=== PATIENT | female | born 2000 | race Caucasian/White ===

== ENCOUNTER 2018-09-22 20:55 | Emergency (ER) | payer BC | END 2018-09-22 23:40 | disposition home or self-care (01) | LOC: COL.ER 20:55 | DX: R10.11 Right upper quadrant pain (principal) ==

== ENCOUNTER → 2018-09-24 | Outpatient (CLI) | payer BC ==
[~2018-09-24] MED LIST: NORCO 325 MG-51 TAB PO; ZOFRAN ODT4 MG PO
== END ==
LOC: COL.RAD 14:28
DX: R10.11 Right upper quadrant pain (principal)

== ENCOUNTER 2019-02-26 20:57 | Outpatient (CLI) | payer OTHER ==
[~2019-02-26] VITALS: Ht 162.6 cm; Wt 139.1 kg
--- NOTE | 2019-02-26 21:05 | NUR ---
Pt arrived on unit ambulatory escorted by family and with complaints of leaking clear fluid. Pt denies any contractions or vaginal bleeding and reports normal movement. Pt also reports sexual activity in the last 24 hours. EFM and toco monitors started. Vital signs WNL. Amnio-test done and negative. Information reviewed with Dr. Moore. Orders for amnio-sure and no SVE until resulted. Plan of care reviewed with pt and family at the bedside.
[2019-02-26 21:17] VITALS: BP 137/76; PULSE 91; TEMP 98.1
[2019-02-26] MEDS ORDERED: PRENATAL (21:23)
[2019-02-26] MEDS ORDERED: CLARITIN 1010 MG/TAB PO (21:23)
[2019-02-26] MEDS ORDERED: BENADRYL25 M2 PO (21:24)
--- NOTE | 2019-02-26 22:20 | NUR ---
Spoke with Dr. Moore. We reviewed FHR tracing, amnio-sure negative and no contractions at this time. Order for discharge home and no SVE at this time. Discharge instructions reviewed with pt and family at the bedside. Pt verbalized an understanding, agreed with the plan and states no questions or concerns at this time.
== END 2019-02-26 22:30 | disposition home or self-care (01) ==
LOC: LDRO 20:57 → COL.ER 20:57 → LDRO 22:30
DX: O36.8120 Decreased fetal movements, second trimester, not applicable or unspecified (principal); Z3A.24 24 weeks gestation of pregnancy

== ENCOUNTER 2019-05-10 22:36 | Outpatient (CLI) | payer MEDICAID ==
[~2019-05-10] VITALS: Ht 162.6 cm; Wt 145.5 kg
[~2019-05-10 22:36] MED LIST changes: +BENADRYL25 M2 PO; +CLARITIN 1010 MG/TAB PO; +PRENATAL
--- NOTE | 2019-05-10 22:45 | NUR ---
at 34 weeks and 6 days arrives to unit with complaint of back pain and what she thinks might be contractions. Pt has had 1 uncomplicated vaginal delivery. Pt denies LOF or vaginal bleeding. States the back pain comes and goes about every 5-10 minutes and will sometimes radiate to one side of abdomen. Pt oriented to room, clean gown on, bed in low and locked position. US and toco explained and applied. Plan of care reviewed. Pt denies headaches, blurry vision, or RUQ pain. SVE 0/50/-3. Admission assessment started. Vital signs obtained.
[2019-05-10 23:00] VITALS: BP 132/62; PULSE 105; TEMP 98.1
[2019-05-10 23:30] VITALS: BP 134/61; PULSE 107
--- NOTE | 2019-05-10 23:50 | NUR ---
Category 1 FHR tracing obtained. Telephone orders ok to discharge home. Pt agreeable to this plan. Return precautions reviewed. Pt verbalized understanding of discharge plan. Pt seen ambulating off unit with spouse and family member.
== END 2019-05-10 23:50 | disposition home or self-care (01) ==
LOC: LDRO 22:36
DX: O62.9 Abnormality of forces of labor, unspecified (principal); Z3A.34 34 weeks gestation of pregnancy

== ENCOUNTER 2019-05-29 19:50 | Outpatient (CLI) | payer MEDICAID ==
[~2019-05-29] VITALS: Ht 162.6 cm; Wt 148.2 kg
--- NOTE | 2019-05-29 20:05 | NUR ---
at 37 weeks and 4 days arrives to unit with complaint of contractions every 5-10 minutes. Pt states she feels them in her abdomen and wrap around to back. Pt denies LOF or vaginal bleeding. Reports good movement. Pt oriented to room, call light within reach, bed in low and locked position. US and toco explained and applied. Plan of care reviewed with patient. 2014/-3 membranes intact.
[2019-05-29 20:30] VITALS: BP 129/71; PULSE 92
--- NOTE | 2019-05-29 21:00 | NUR ---
No contractions noted on tocometer, slight irritability at times. Pt reports contractions have slowed down and decreased in intensity since arriving at hospital.
--- NOTE | 2019-05-29 21:30 | NUR ---
SVE unchanged from previous exam. Pt ok with plan to discharge home. Discharge instructions reviewed, pt verbalized understanding. Pt seen ambulating off unit with spouse.
== END 2019-05-29 21:30 | disposition home or self-care (01) ==
LOC: LDRO 19:50 → LDR 20:05 → LDRO 21:30
DX: O62.9 Abnormality of forces of labor, unspecified (principal); Z3A.37 37 weeks gestation of pregnancy
CPT/HCPCS: OP

== ENCOUNTER 2019-05-30 01:49 | Inpatient (IN) | payer MEDICAID ==
[2019-05-30] VITALS (39 sets, daily range): BP systolic 111–166; BP diastolic 53–93; PULSE 64–106; TEMP 97.7–98.4
[~2019-05-30] VITALS: Ht 162.6 cm; Wt 148.2 kg
--- NOTE | 2019-05-30 02:00 | NUR ---
G2L1. 37-5. Ambulatory to LDR 3 with family. Clean gown on. EFM and TOCO explained and applied. Pt states she was here earlier tonight with contractions. States she went home and went to sleep and woke up at 0130 to use restroom and her water broke at 0130, large amount of clear fluid noted. Pt reports light spotting after wiping. Reports good movement. Pt states prior to water breaking she was not having contractions but since 0130 they have started again. Amniotest positive with large amount of clear fluid noted on exam. SVE 2-3/80/-2. Plan of care explained to pt and family who verbalize understanding. 0223: updated on pt. Admit orders received. Pt updated on new orders and plan of care. 0240: IV started and labs obtained via IV site. LR bolus infusing without difficulties. 0253: FHR strip reactive. Pt up to ambulate in hallway with and mother.Mesh panties and pad given to pt.
[2019-05-30 03:09] LABS: BASO % 0.3 % (0.0-2.0); EOS # 0.2 (0.0-0.7); EOS % 1.8 % (0-4.0); GRAN # 8.5 (1.4-6.5); GRAN % 71.9 % (42.2-75.2); HEMOGLOBIN 11.5 g/dl (12.0-15.0); LYMPH # 1.9 (1.2-3.4); LYMPH % 16.4 % (20.0-51.0); MEAN CELL VOLUME 81 fl (80.0-95.0); MEAN CORPUSCULAR HEMOGLOBIN 26 pg (26.0-32.0); MEAN CORPUSCULAR HGB CONC 32 g/dl (33.0-37.0); MONO % 8.7 % (1.7-9.3); PLATELET COUNT 230 K/mm3 (130-400); RED BLOOD COUNT 4.43 M/mm3 (4.10-5.30); REDCELL DISTRIBUTION WIDTH-CV 14.5 % (11.5-14.5)
[2019-05-30 03:24] LABS: HEMATOCRIT 35.8 % (35.0-45.0)
--- NOTE | 2019-05-30 03:28 | NUR ---
Pt called out requesting epidural at this time. Francisco COLLAR CUTTER notified. LR bolus infusing without difficulties. Plan of care explained to pt and family.
--- NOTE | 2019-05-30 04:00 | NUR ---
Francisco ALEXIS at bedside. Epidural procedure explained. Pt assisted to EOB. Difficulty tacing FHR due to maternal position, RN at bedside adjusting monitors. Pulse ox applied. 0422: Single Shot administered by Francisco ALEXIS. 0427: Test dose administered by Francisco ALEXIS. See anesthesia records. 0430: Pt assisted to wedge left position. Monitors reapplied. Plan of care and safety precautions explained to pt and family who verbalize understanding. Call light within reach.
--- NOTE | 2019-05-30 05:05 | NUR ---
[id number]: Difficulty tracing contractions. TOCO adjusted multiple times. Will continue to monitor. 0505: Javier inserted without difficulties. SVE /-2. Pericare provided and pt wedge left per request. Pt states she is going to try and get some rest. TOCO monitors adjusted. Plan of care explained to pt and questions answered.
--- NOTE | 2019-05-30 06:15 | NUR ---
REPORT FROM Rupa HUBER RN. PATIENT SLEEING. MOTHER AND FATHER OF BABY ASLEEP AT BEDSIDE
--- NOTE | 2019-05-30 10:38 | NUR ---
1038- BY DR PANDYA. TO MOTHERS CHEST, CORD CUT BY FOB. TO CARE OF GENNA Martin RN. PLACENTA EXPRESSED AT 1041. PITOCIN STARTED 333 MLS/ HR. PERINEUM INTACT. ICE PACK TO PERINEUM. RECOVERY STARTED AT 1045.
--- NOTE | 2019-05-30 16:00 | NUR ---
Assumed care of patient. Rests in bed, alert. Denies any needs at this time.
[2019-05-31 07:49] LABS: HEMOGLOBIN 10.7 g/dl (12.0-15.0)
[2019-05-31 07:55] LABS: HEMATOCRIT 34.6 % (35.0-45.0)
[2019-05-31 08:05] VITALS: BP 124/62; PULSE 68; TEMP 97.8
[2019-05-31] MEDS ORDERED: IBU600 MG PO (09:06)
--- NOTE | 2019-05-31 09:47 | NUR ---
Initial visit; Parents thanked for offering congratulations for the of their son. thanked family for choosing [facility]/ [address].
== END 2019-05-31 16:00 | disposition home or self-care (01) | DRG 807 ==
LOC: LDRO 01:49 → LDR 02:27 → OB 02:27
PROVIDERS: Obstetrics & Gynecology; ADMIT Obstetrics & Gynecology
PROC: 10E0XZZ Delivery of Products of Conception, External Approach (ICD-10-PCS; principal; 2019-05-30)
DX: O99.344 Other mental disorders complicating childbirth (principal); Z37.1 Single stillbirth; O99.62 Diseases of the digestive system complicating childbirth; F32.9 Major depressive disorder, single episode, unspecified; L73.2 Hidradenitis suppurativa; O99.214 Obesity complicating childbirth; O99.72 Diseases of the skin and subcutaneous tissue complicating childbirth; K21.9 Gastro-esophageal reflux disease without esophagitis; F41.9 Anxiety disorder, unspecified; Z3A.37 37 weeks gestation of pregnancy
CPT/HCPCS: J2590; J2795; J7120

== ENCOUNTER → 2021-01-27 | Outpatient (CLI) | payer BC ==
[~2021-01-27] VITALS: Ht 162.6 cm; Wt 150.8 kg
[~2021-01-27] MED LIST changes: +ATARAX 25MG25 MG/TAB PO; +DIAMOX SEQUELS500 M1 PO; +EFFEXOR-XR150 MG PO; +IBU600 MG PO; +IRON TABLETS325 MG PO; +JUNEL 1/20 20 M1 TAB; +PRINIVIL5 MG PO; +SYNTHROID0.075 MG/T PO; +VITAMINC1000TA PO
[2021-01-27 13:17] VITALS: BP 149/80; PULSE 92
[2021-01-27 14:35] VITALS: BP 119/57; PULSE 73
[2021-01-27 14:50] VITALS: BP 127/48; PULSE 70
[2021-01-27 14:55] LABS: CSF MONONUCLEAR 40 % (70-100); CSF POLYMORPHONUCLEAR 60 % (0-6); CSF RBC 1000 /mm3 (0-0)
[2021-01-27 15:05] LABS: GLUCOSE,CSF 54 mg/dL (40-70); TOTAL PROTEIN,CSF 20 mg/dL (15-45)
[2021-01-27 15:15] VITALS: BP 127/57; PULSE 74
[2021-01-29 09:42] LABS: CSF APPEARANCE HAZY; CSF COLOR COLORLESS
[2021-02-03 07:56] LABS: ALBUMIN CSF 8.9 mg/dL (<=27.0)
[2021-02-03 08:34] LABS: CSF IGG/ALBUMIN 0.25 (<=0.21); CSF,IGG 2.2 mg/dL (<=8.1)
[2021-02-03 09:08] LABS: CSF-IGG INDEX 0.54 (<=0.85); IGG/ALBUMIN SERUM 0.46 (<=0.40)
== END ==
LOC: COL.RAD 12:55
PROVIDERS: Psychiatry & Neurology Neurology
DX: G93.2 Benign intracranial hypertension (principal)

== ENCOUNTER 2021-04-19 14:18 | Observation (INO) | payer OTHER ==
[~2021-04-19] VITALS: Ht 162.6 cm; Wt 148.6 kg
[2021-04-19] VITALS (8 sets, daily range): BP systolic 120–137; BP diastolic 39–87; PULSE 85–104; TEMP 98.6–98.9
[~2021-04-19 14:18] MED LIST changes: -DIAMOX SEQUELS500 M1 PO; -IRON TABLETS325 MG PO; -JUNEL 1/20 20 M1 TAB; -VITAMINC1000TA PO
[2021-04-19 15:33] LABS: BASO % 0.3 % (0.0-2.0); EOS # 0.3 (0.0-0.7); EOS % 2.3 % (0-4.0); GRAN # 9.4 (1.4-6.5); GRAN % 71.2 % (42.2-75.2); LYMPH # 2.6 (1.2-3.4); LYMPH % 19.8 % (20.0-51.0); MEAN CELL VOLUME 62 fl (80.0-100.0); MEAN CORPUSCULAR HGB CONC 26 g/dl (33.0-37.0); MEAN PLATELET VOLUME 9.8 fl (7.4-10.4); MONO # 0.8 (0.1-0.6); MONO % 5.9 % (1.7-9.3); PLATELET COUNT 295 K/mm3 (130-400); RED BLOOD COUNT 3.35 M/mm3 (4.10-5.30); REDCELL DISTRIBUTION WIDTH-CV 22.8 % (11.5-14.5)
[2021-04-19 15:37] LABS: HEMATOCRIT 20.9 % (37.0-47.0); MEAN CORPUSCULAR HEMOGLOBIN 16 pg (27.0-31.0)
[2021-04-19 15:38] LABS: HEMOGLOBIN 5.5 g/dl (12.5-16.0)
[2021-04-19 15:46] LABS: ALBUMIN 3.7 gm/dL (3.5-5.0); BILIRUBIN,TOTAL 0.4 mg/dL (0.0-1.0); CREATININE, serum 0.54 (0.52-1.25); POTASSIUM 4.3 mmol/L (3.4-5.0); TOTAL PROTEIN 7.4 gm/dL (6.4-8.2)
--- NOTE | 2021-04-19 18:12 | NUR ---
1811- PT PRESENTS TO LDR BY WHEELCHAIR FROM ED TO ROOM 221. PT ASSISTED TO BED, ORIENTED TO ROOM AND CALL LIGHTS. NURSE REQUESTS THAT TECH BRINGING PT REMIND ED NURSE TO CALL REPORT. 1824- DR LEES CALLS TO SEE IF PT HAS MADE IT TO ROOM. THIS NURSE UPDATES HIM THAT THE PT HAS ARRIVED TO ROOM 221 AND NURSE IS CHECKING ORDERS. DR LEES STATES HE WILL BE IN TO ASSESS PT. 1829- PT UPDATED THAT SHE WILL STILL BE NPO UNTIL DR LEES SEES HER. 1899- DR LEES AT PT BEDSIDE FOR ASSESSMENT. NURSE CHECKING BLOOD AT BEDSIDE. 1909- FIRST UNIT OF BLOOD INFUSING. PT WITHOUT COMPLAINTS. 2124- FIRST UNIT TRANSFUSED. PT TOLERATED WELL. 2244- SECOND UNIT OF BLOOD INFUSING. PT RESTING QUIETLY.
[2021-04-20 00:30] VITALS: BP 125/51; PULSE 86; TEMP 99.2
[2021-04-20 00:45] VITALS: BP 122/53; PULSE 78; TEMP 99
[2021-04-20 06:45] LABS: BASO # 0.1 (0.0-0.2); BASO % 0.5 % (0.0-2.0); EOS # 0.5 (0.0-0.7); GRAN % 58.4 % (42.2-75.2); LYMPH # 2.7 (1.2-3.4); MEAN CORPUSCULAR HGB CONC 27 g/dl (33.0-37.0); MEAN PLATELET VOLUME 10.2 fl (7.4-10.4); MONO % 9.7 % (1.7-9.3); PLATELET COUNT 244 K/mm3 (130-400); REDCELL DISTRIBUTION WIDTH-CV 26.5 % (11.5-14.5)
[2021-04-20 06:53] VITALS: BP 102/46; PULSE 75; TEMP 98
[2021-04-20 06:58] LABS: HEMATOCRIT 24.2 % (37.0-47.0); HEMOGLOBIN 6.6 g/dl (12.5-16.0); MEAN CORPUSCULAR HEMOGLOBIN 19 pg (27.0-31.0)
[2021-04-20 08:12] LABS: MEAN CELL VOLUME 71 fl (80.0-100.0)
--- NOTE | 2021-04-20 10:02 | NUR ---
Initial visit attempt; Nurse with patient. Assistant Professor Nurse Education left card letting patient know of the availability of spiritual care at our hospital and offering patient God's blessings.
[2021-04-20 10:23] LABS: IRON,SERUM 17 ug/dL (35-150)
[2021-04-20 10:33] LABS: TOTAL IRON BINDING CAPACITY 438 ug/dL (265-497)
--- NOTE | 2021-04-20 10:56 | NUR ---
This RN at bedside. 3 quarter to half dollar size clots noted in urine hat. Pt states "feeling better, but still a little light-headed." Up and ambulating to shower.
[2021-04-20 11:47] VITALS: BP 1114/57; PULSE 74
--- NOTE | 2021-04-20 12:50 | NUR ---
6-7 quarter size clots noted in urine hat.
--- NOTE | 2021-04-20 13:43 | NUR ---
RN at bedside 3-4 quarter size clots noted in hat. Blood noted on 08/03 of new pad.
[2021-04-20 16:50] VITALS: BP 112/46; PULSE 70; TEMP 97.9
--- NOTE | 2021-04-20 17:44 | NUR ---
1740 patient up to bathroom with 6-7 quarter size clots in urine hat with bloody urine. states she is very nausea and SOB with activity. Zofran given at this time
[2021-04-20 20:30] VITALS: BP 110/52; PULSE 79; TEMP 98
--- NOTE | 2021-04-20 20:30 | NUR ---
2030 UP TO BR AND VOIDED. URINE LIGHT PINK COLORED IN MEASURING HAT AND 1 SM STRINGLY CLOT NOTED. PAD NOT CHANGED. 2200 UP TO BR AND VOIDED. PAD HAS UNDETERMINED AMOUNT OF VAG BLEEDING NOTED ON IT BUT PAD GOT SOAKED WITH URINE SO UNABLE TO DETERMINE EXACT AMT. URINE COLORED LIGHT PINK IN MEASURING HAT WITH 1-2 SM STRINGY CLOTS NOTED
[2021-04-21] VITALS (14 sets, daily range): BP systolic 108–137; BP diastolic 40–80; PULSE 67–90; TEMP 97.5–98.8
--- NOTE | 2021-04-21 02:00 | NUR ---
0200 UP TO BR AND VOIDED 800CC. URINE RED TINGED WITH 3CM FLAT CLOT NOTED. PAD CHANGED WITH MOD AMT LIGHT PINK VAG BLEEDING NOTED. NO C/O ANY DISCOMFORT. RETURNED TO BED. 0400 UP TO BR AND VOIDED. URINE SL PINK TINGED WITH SM STRINGY CLOT NOTED. PAD NOT CHANGED. SURGERY PERMIT SIGNED. REMAINS NPO
[2021-04-21 07:08] LABS: MEAN CELL VOLUME 71 fl (80.0-100.0); MEAN CORPUSCULAR HGB CONC 27 g/dl (33.0-37.0); MEAN PLATELET VOLUME 10.4 fl (7.4-10.4); PLATELET COUNT 254 K/mm3 (130-400); RED BLOOD COUNT 3.19 M/mm3 (4.10-5.30); REDCELL DISTRIBUTION WIDTH-CV 26.8 % (11.5-14.5)
[2021-04-21 07:11] LABS: HEMATOCRIT 22.5 % (37.0-47.0); HEMOGLOBIN 6.1 g/dl (12.5-16.0); MEAN CORPUSCULAR HEMOGLOBIN 19 pg (27.0-31.0)
[2021-04-21 07:47] LABS: ANISOCYTOSIS 3+; BAND 11 % (0-10); BASOPHIL 1 % (0-2); EOSINOPHIL 4 % (0-4); HYPOCHROMIA 3+; LYMPHOCYTE 26 % (20.0-51.0); METAMYELOCYTE 1 % (0-0); MICROCYTOSIS 3+; NEUTROPHILS 51 % (42.0-75.2)
[2021-04-21 07:48] LABS: OVALOCYTES 2+
[2021-04-21 07:49] LABS: SCHISTOCYTES 1+
[2021-04-21 07:51] LABS: TEAR DROP CELLS 1+
[2021-04-21 07:52] LABS: POIKILOCYTOSIS 3+
--- NOTE | 2021-04-21 13:00 | NUR ---
1300- Pt up to void independently with RN in room. Voids without difficulty. Pt states no vaginal bleeding at this time. Pt complains of slight light headedness while standing.
[2021-04-21 17:26] LABS: HEMATOCRIT 23.6 % (37.0-47.0)
[2021-04-21 17:27] LABS: HEMOGLOBIN 6.7 g/dl (12.5-16.0)
--- NOTE | 2021-04-21 19:55 | NUR ---
Discharge instructions reviewed with patient including to return to the [facility] tomorrow, 04/22/21, and Monday04/24/21, for iron infusions in the express unit. Tomorrow she is scheduled for 0900. She will follow-up with Dr. Gomez and call the [facility] to schedule this appointment. Patient agrees to the this plan and states understanding. INT site remains in place for iron infusion tomorrow. INT flushed with NS and wrapped in coban. Instructions given including to keep clean and dry and to not remove coban. Patient states understanding. Patient ambulatory to POV with . Discharged home in stable condition at 1955.
[2021-04-22] MEDS ORDERED: DIAMOX SEQUELS500 M1 PO (11:26)
[2021-04-22] MEDS ORDERED: JUNEL 1/20 20 M1 TAB (11:26)
[2021-04-22] MEDS ORDERED: VITAMINC1000TA PO (11:26)
[2021-04-22] MEDS ORDERED: IRON TABLETS325 MG PO (11:27)
== END 2021-04-21 19:55 | disposition home or self-care (01) ==
LOC: COL.ER 14:18 → OB 16:44
PROVIDERS: Obstetrics & Gynecology; Personal Emergency Response Attendant; ADMIT Obstetrics & Gynecology
DX: N92.0 Excessive and frequent menstruation with regular cycle (principal); D50.0 Iron deficiency anemia secondary to blood loss (chronic); I10 Essential (primary) hypertension; E66.9 Obesity, unspecified; E03.9 Hypothyroidism, unspecified; G93.2 Benign intracranial hypertension; F17.210 Nicotine dependence, cigarettes, uncomplicated; N83.202 Unspecified ovarian cyst, left side; Z68.43 Body mass index [BMI] 50.0-59.9, adult; Z79.890 Hormone replacement therapy; Z79.899 Other long term (current) drug therapy; Z87.891 Personal history of nicotine dependence
CPT/HCPCS: G0378; J1756; J2405; J2704; J3010; J7030; J7050; P9016

== ENCOUNTER 2021-04-24 08:00 | Outpatient (RCR) | payer BC ==
[2021-04-22 10:27] VITALS: BP 132/78; PULSE 71; TEMP 97.9
[~2021-04-24 08:00] MED LIST changes: +DIAMOX SEQUELS500 M1 PO; +IRON TABLETS325 MG PO; +JUNEL 1/20 20 M1 TAB; +VITAMINC1000TA PO
[2021-04-24 08:07] VITALS: BP 96/53; PULSE 69; TEMP 98.7
== END 2021-04-24 09:39 | disposition home or self-care (01) ==
LOC: EUO 08:00
DX: Z79.899 Other long term (current) drug therapy (principal)
CPT/HCPCS: J1756; J7050